=== PATIENT | female | born 1945 | race Caucasian/White ===

== ENCOUNTER → 2019-02-04 | Outpatient (CLI) | payer OTHER, BC ==
--- NOTE | 2019-02-07 12:11 | PATH ---
[facility] [place] [address] PATHOLOGY RPT PROCEDURE Name: BREANNE PADILLA Room #: REG [facility] Анна.#: [id number] Admission: 02/04/19 Date of : 47 Discharge: Report #: [id number] Path Case #: [id number] [facility] Accession Number: [id number] . 01 Material submitted: . colon - POLYP AT MID-ASCENDING COLON. Modifiers: mid, ascending . 01 Clinical history: . Preop DX: Family hx of colon cancer, hx of polyps Postop DX: Colon polyp . 02 Diagnosis: Colonic mucosa, "polyp at mid ascending colon": - Tubular adenoma. - There is no evidence of high grade dysplasia or malignancy. . (SHA:mml; 02/07/2019) QL 02/07/2019 1025 Local . 02 Electronically signed: . John Wilkins MD, Pathologist NPI- [id number] . 01 Gross description: . Received in formalin labeled "Breanne Padilla, polyp at mid-ascending colon," are two segments of pale manzanares soft tissue measuring 0.2 x 0.2 x 0.1 cm and 0.5 x 0.2 x 0.2 cm in greatest dimensions. The specimen is submitted entirely in cassette A1. The smaller segment may not survive processing. (DAC; 02/04/2019) XDC/XDC 02/04/2019 1548 Local . 02 Pathologist provided ICD-10: D12.2 . 02 CPT . 849986 Specimen Comment: A courtesy copy of this report has been sent to [phone], [phone] Specimen Comment: [phone] Specimen Comment: Report sent to / DR [place] Performed at: 01 [facility] [address] [facility] [address], [place] [id number] MD Mahesh Barahona MD Phone: [phone] Performed at: 02 [facility] [address] [place] [address] PATHOLOGY RPT PROCEDURE Name: BREANNE PADILLA Room #: REG Nicole Jj.#: [id number] Admission: 02/04/19 Date of : 47 Discharge: Report #: [id number] Path Case #: [id number] [address] [place], [place] [id number] MD Erendira Pierce MD Phone: [phone]
--- NOTE | 2019-02-07 17:09 | P ---
[facility] [place] [address] [place] [address] PROCEDURE REPORT Name: MAIDA VAZQUEZ Room #: REG [facility]#: [id number] Admission: 02/04/19 Attend Phys: Iglesia Horn MD Discharge: Date of : 47 Report #: [id number] THIS REPORT FOR: //name// CC: Iglesia Chapman MD DATE OF SERVICE: 02/04/2019 BRIEF HISTORY: The patient is a 73-year-old woman with a strong family history of colon cancer. Mother had colon cancer at age 64. Maternal grandmother, colon cancer at age 60 and a brother, colon cancer at age 53. The patient also has a history of colon polyps. In addition, she has had genetic testing that was negative for the Gutierrez gene per her report. PREOPERATIVE DIAGNOSIS: Family history of colon cancer and personal history of colon polyps. POSTOPERATIVE DIAGNOSES: Colon polyp. MEDICATIONS: Deep sedation with propofol per anesthesia. SPECIMEN: Diminutive polyp, mid ascending colon. ESTIMATED BLOOD LOSS: 3 mL. PROCEDURE: Colonoscopy to cecum and terminal ileum with biopsy. FINDINGS: Prior to propofol sedation, procedure of colonoscopy discussed with the patient as well as potential risks and its complications. She indicates she understands and desires to proceed. DESCRIPTION OF PROCEDURE: With the patient in left lateral decubitus position, digital examination was completed, which revealed no abnormalities. Subsequently, the Olympus video colonoscope was introduced in the rectum, advanced under direct vision to the cecum. Done with minimal difficulty. The cecum was identified by the ileocecal valve and the appendiceal orifice. I was able to visualize the distal segment of terminal ileum, which was inspected and noted to be unremarkable. At that point, the scope was slowly withdrawn and careful circumferential views obtained including retroflexing the scope in the ascending colon. Upon slow withdrawal of the scope, the prep was good. The mucosa was within normal limits, normal vascular pattern, normal light reflex. As we withdrew the scope, she was found to have a Diminutive polyp, mid ascending colon. No additional polypoid lesions were seen. It was noted she had diffusely dilated colon throughout consistent with chronic constipation. She does report she has had a longstanding history of constipation. [facility] [address] [place] [address] PROCEDURE REPORT Name: MAIDA VAZQUEZ Room #: REG [facility].#: [id number] Admission: 02/04/19 Attend Phys: Iglesia Horn MD Discharge: Date of : 47 Report #: [id number] additional abnormalities were seen down to the rectum. In the rectum, no abnormalities were seen. Upon retroflexion, no abnormalities were seen. Scope was withdrawn. The patient tolerated the procedure well. CONDITION OF THE PATIENT UPON DISCHARGE: Following procedure, the patient drowsy, aroused, conversant and will be discharged home when fully ambulatory. INSTRUCTIONS TO THE PATIENT AND FAMILY AT THE TIME OF DISCHARGE: One small polyp seen. We will follow up on the path and make further recommendations. However, given her very strong family history of colon cancer, suggest followup colonoscopy in 3 years. Last colonoscopy was 3 years ago. Withdrawal time from the cecum was 11 minutes 49 seconds. <ELECTRONICALLY SIGNED> By: Iglesia Horn MD 02/07/19 1709 [id number] [id number] Iglesia Horn MD /nt
== END | disposition home or self-care (01) ==
LOC: GI 07:31
DX: Z12.11 Encounter for screening for malignant neoplasm of colon (principal); Z86.010 Personal history of colon polyps; Z80.0 Family history of malignant neoplasm of digestive organs; D12.2 Benign neoplasm of ascending colon; K21.9 Gastro-esophageal reflux disease without esophagitis; Z98.890 Other specified postprocedural states; Z79.899 Other long term (current) drug therapy
CPT/HCPCS: 62110; 62900